=== PATIENT | female | born 1935 | race Caucasian/White ===

== ENCOUNTER 2024-04-19 18:37 | Inpatient (IN) | payer MEDICARE ==
[~2024-04-19] VITALS: Ht 165.1 cm; Wt 67.0 kg
[2024-04-19] MEDS ORDERED: MOM 30ML SUSPENSION UDC PO PRN (19:25)
[2024-04-19] MEDS ORDERED: ACETAMINOPHEN TAB 650MG DOSE (2X325MG) PO PRN (19:25)
[2024-04-19] MEDS: DOCUSATE SODIUM 100MG CAPSULE PO SCH (21:00)
[2024-04-19] MEDS: GABAPENTIN 100 MG CAP PO SCH (21:00)
[2024-04-19] MEDS: CYCLOBENZAPRINE 5MG TABLET PO SCH (22:00)
[2024-04-20] VITALS (10 sets, daily range): BP systolic 145–174; BP diastolic 63–95; TEMP 97–98.4; O2SAT 94–99
[2024-04-20] MEDS: ACETAMINOPHEN 500 MG TAB PO SCH
[2024-04-20] MEDS ORDERED: oxyCODONE 5MG TAB PO PRN ×2 (01:40→12:30)
[2024-04-20] MEDS: ONDANSETRON 4MG 2ML VIAL IV PRN (02:06)
[2024-04-20 02:11] LABS: HEMATOCRIT 39.7 % (36.0-47.0); HEMOGLOBIN 13.6 g/dl (12.0-15.5); MEAN CORPUSCULAR HEMOGLOBIN 31.7 pg (27.0-33.0); MEAN CORPUSCULAR HGB CONC 34.3 g/dl (32.0-36.5); MEAN CORPUSCULAR VOLUME 92.5 fl (80.0-96.0); PLATELET COUNT, AUTOMATED 224 10^3/uL (150-450); RED BLOOD COUNT 4.29 10^6/uL (4.00-5.40); WHITE BLOOD COUNT 15.6 10^3/uL (4.0-10.0)
[2024-04-20] MEDS ORDERED: AMIT-253 PO (02:20)
[2024-04-20] MEDS ORDERED: LISI10TA24 PO (02:20)
[2024-04-20 02:24] LABS: INR 1.02; PROTHROMBIN TIME 13.1 SECONDS (12.5-14.5)
[2024-04-20] MEDS ORDERED: MAGN64TASA PO (02:24)
[2024-04-20] MEDS ORDERED: CENT1TAB PO (02:24)
[2024-04-20] MEDS ORDERED: PRAV20TA2 PO (02:24)
[2024-04-20] MEDS ORDERED: HOME MED LIST COMPLETE! XX SCH (02:25)
[2024-04-20 02:42] LABS: ALBUMIN 3.7 G/DL (3.2-5.2); BILIRUBIN,TOTAL 0.8 MG/DL (0.3-1.2); CALCIUM LEVEL 9.2 MG/DL (8.3-10.6); CREATININE FOR GFR 0.99 MG/DL (0.55-1.30); GLOMERULAR FILTRATION RATE 56.2 (>32); POTASSIUM SERUM 4.1 MMOL/L (3.5-5.1); TOTAL PROTEIN 6.9 G/DL (5.7-8.2)
[2024-04-20] MEDS: NS 1,000 ML IV SCH (03:07)
[2024-04-20] MEDS ORDERED: KETOROLAC 30 MG/ML 1ML VIAL IV PRN (04:00)
[2024-04-20] MEDS: UNRESOLVED CLARIFICATION ENTRY XX STA (04:45)
[2024-04-20 07:17] LABS: HEMATOCRIT 38.2 % (36.0-47.0); HEMOGLOBIN 12.7 g/dl (12.0-15.5); MEAN CORPUSCULAR HGB CONC 33.2 g/dl (32.0-36.5); MEAN CORPUSCULAR VOLUME 93.2 fl (80.0-96.0); PLATELET COUNT, AUTOMATED 236 10^3/uL (150-450); WHITE BLOOD COUNT 14.3 10^3/uL (4.0-10.0)
[2024-04-20 07:48] LABS: CALCIUM LEVEL 9.2 MG/DL (8.3-10.6); CREATININE FOR GFR 0.96 MG/DL (0.55-1.30); GLOMERULAR FILTRATION RATE 58.3 (>32); POTASSIUM SERUM 4.1 MMOL/L (3.5-5.1)
[2024-04-20] MEDS: LIDOCAINE 5% (LIDODERM) PATCH TD SCH (09:00)
[2024-04-20] MEDS: ceFAZolin 2 GM/D5W 50 ML IV BAG As Ordered ONE (11:39)
[2024-04-20] MEDS: TRANEXAMIC ACID 100 MG/ML 10ML VIAL As Ordered ONE (11:47)
[2024-04-20] MEDS ORDERED: ONDANSETRON 4MG 2ML VIAL As Ordered ONE (12:10)
[2024-04-20] MEDS ORDERED: LIDOCAINE 2% 100MG/5ML SDV (FOR ANES.) As Ordered ONE (12:10)
[2024-04-20] MEDS ORDERED: ACETAMINOPHEN 1000MG 100ML IV BAG As Ordered ONE (12:10)
[2024-04-20] MEDS ORDERED: KETAMINE HCL 200MG/20ML VIAL As Ordered ONE (12:10)
[2024-04-20] MEDS ORDERED: MIDAZOLAM INJ 2MG/2ML VIAL As Ordered ONE (12:10)
[2024-04-20] MEDS ORDERED: fentaNYL 100 MCG/2 ML INJECTION As Ordered ONE (12:10)
[2024-04-20] MEDS ORDERED: propofoL 200 MG/20 ML VIAL As Ordered ONE (12:10)
[2024-04-20] MEDS ORDERED: PHENYLephrine 500MCG 5ML (100MCG/ML) SYRINGE As Ordered ONE (12:27)
[2024-04-20] MEDS ORDERED: ePHEDrine SULFATE 25 MG/5 ML(5MG/ML) SYRINGE As Ordered ONE (12:27)
[2024-04-20] MEDS ORDERED: ONDANSETRON 4MG 2ML VIAL IV PRN (12:30)
[2024-04-20] MEDS ORDERED: fentaNYL 100 MCG/2 ML INJECTION IV PRN (12:30)
[2024-04-20] MEDS ORDERED: MEPERIDINE 25 MG/ML 1ML VIAL IV PRN (12:30)
[2024-04-20] MEDS ORDERED: METOCLOPRAMIDE INJ 10MG/2ML VIAL IV PRN (12:30)
[2024-04-20] MEDS ORDERED: diphenhydrAMINE 50MG/ML VIAL IV PRN (12:30)
[2024-04-20] MEDS: LR 1,000 ML IV SCH (12:30)
[2024-04-20] MEDS ORDERED: ENOXAPARIN 40MG/0.4ML SYRINGE (J1650 PER 10MG) SC SCH (14:40)
[2024-04-20] MEDS ORDERED: ENOXAPARIN 30MG/0.3ML SYRINGE (J1650 PER 10MG) SC SCH (16:00)
[2024-04-20] MEDS ORDERED: lisinopriL 5 MG TAB PO SCH (16:00)
[2024-04-20] MEDS: ENOXAPARIN 30MG/0.3ML SYRINGE (J1650 PER 10MG) SC SCH (16:33)
[2024-04-20] MEDS: lisinopriL 5 MG TAB PO SCH (16:33)
[2024-04-20] MEDS: oxyCODONE 5MG TAB PO PRN (17:36)
[2024-04-20] MEDS: KETOROLAC 30 MG/ML 1ML VIAL IV PRN (18:35)
[2024-04-20] MEDS: PRAVASTATIN 20 MG TAB PO SCH (20:13)
[2024-04-20] MEDS: AMITRIPTYLINE 10MG TABLET PO SCH (20:13)
[2024-04-20] MEDS: ceFAZolin SOD 2 GM in IV 1 EA IV SCH (20:14)
[2024-04-20] MEDS: MAGNESIUM GLUCONATE 500 MG TAB PO SCH (20:14)
[2024-04-21] VITALS: BP 128/60; TEMP 97.2; O2SAT 98
[2024-04-21 03:54] VITALS: BP 140/68; TEMP 97.3; O2SAT 98
[2024-04-21 06:13] LABS: BASO % 0.4 % (0.0-1.0); EOS # 0.2 10^3/uL (0.0-0.5); EOS % 2.5 % (0.0-3.0); HEMATOCRIT 36.3 % (36.0-47.0); HEMOGLOBIN 11.8 g/dl (12.0-15.5); LYMPH # 2.4 10^3/uL (1.5-5.0); LYMPH % 25.8 % (24.0-44.0); MEAN CORPUSCULAR HEMOGLOBIN 31.3 pg (27.0-33.0); MEAN CORPUSCULAR HGB CONC 32.5 g/dl (32.0-36.5); MEAN CORPUSCULAR VOLUME 96.3 fl (80.0-96.0); MONO # 0.4 10^3/uL (0.0-0.8); MONO % 4.7 % (2.0-8.0); NEUTROPHILS # 6.1 10^3/uL (1.5-8.5); NEUTROPHILS % 66.2 % (36.0-66.0); PLATELET COUNT, AUTOMATED 203 10^3/uL (150-450); RED BLOOD COUNT 3.77 10^6/uL (4.00-5.40); WHITE BLOOD COUNT 9.2 10^3/uL (4.0-10.0)
[2024-04-21 06:33] LABS: CALCIUM LEVEL 8.6 MG/DL (8.3-10.6); CREATININE FOR GFR 1.1 MG/DL (0.55-1.30); GLOMERULAR FILTRATION RATE 49.8 (>32); POTASSIUM SERUM 4.5 MMOL/L (3.5-5.1)
[2024-04-21] MEDS: MULTIVITAMINS/MINERALS THERAP 1 TAB PO SCH (08:21)
[2024-04-21 12:00] VITALS: BP 129/55; TEMP 98.1; O2SAT 97
[2024-04-21 19:50] VITALS: BP 110/60; TEMP 97.5; O2SAT 98
[2024-04-22 04:00] VITALS: BP 138/57; TEMP 97; O2SAT 96
[2024-04-22 06:11] LABS: HEMATOCRIT 32.8 % (36.0-47.0); HEMOGLOBIN 10.7 g/dl (12.0-15.5); MEAN CORPUSCULAR HEMOGLOBIN 31.3 pg (27.0-33.0); MEAN CORPUSCULAR HGB CONC 32.6 g/dl (32.0-36.5); MEAN CORPUSCULAR VOLUME 95.9 fl (80.0-96.0); PLATELET COUNT, AUTOMATED 180 10^3/uL (150-450); RED BLOOD COUNT 3.42 10^6/uL (4.00-5.40); WHITE BLOOD COUNT 7.8 10^3/uL (4.0-10.0)
[2024-04-22 06:57] LABS: ATYPICAL LYMPH 8 % (0-5); BASOPHILS 1 % (0-1); EOSINOPHILS 6 % (0-3); LYMPHOCYTES 11 % (16-44); MONOCYTES 11 % (0-5); NEUTROPHILS 63 % (28-66); PLATELET ESTIMATE NORMAL (NORMAL)
[2024-04-22 08:30] VITALS: BP 139/62
[2024-04-22] MEDS ORDERED: PROT1TAB2 PO (11:59)
[2024-04-22] MEDS ORDERED: ASPI81CH33 PO (11:59)
[2024-04-22] MEDS ORDERED: OXYC1TAB23 PO (11:59)
[2024-04-22 12:00] VITALS: BP 123/58; TEMP 98.5; O2SAT 94
== END 2024-04-22 15:50 | disposition home health service (06) | DRG 481 ==
LOC: M MS5PR 04-20 00:45
PROVIDERS: ADMIT Internal Medicine; ATTEND Internal Medicine
PROC: 0QS604Z Reposition Right Upper Femur with Internal Fixation Device, Open Approach (ICD-10-PCS; principal; 2024-04-20 10:00)
DX: S72.011A Unspecified intracapsular fracture of right femur, initial encounter for closed fracture (principal); E87.1 Hypo-osmolality and hyponatremia; I10 Essential (primary) hypertension; I34.0 Nonrheumatic mitral (valve) insufficiency; E78.5 Hyperlipidemia, unspecified; G47.00 Insomnia, unspecified; W19.XXXA Unspecified fall, initial encounter; Z79.82 Long term (current) use of aspirin; Z79.899 Other long term (current) drug therapy; F41.9 Anxiety disorder, unspecified; M19.90 Unspecified osteoarthritis, unspecified site; Y92.009 Unspecified place in unspecified non-institutional (private) residence as the place of occurrence of the external cause